=== PATIENT | male | born 1995 | race Caucasian/White ===

== ENCOUNTER 2017-07-01 00:45 | Emergency (ER) | payer OTHER ==
[2017-07-01 00:50] VITALS: BP 122/72; PULSE 107; RESP 18; TEMP 98.2; O2SAT 95
--- NOTE | 2017-07-01 01:01 | EDPHY ---
H & P Time Seen by Provider: 07/01/17 00:49 HPI/ROS: CC: "I cut my hand while cooking." HPI: This 21-year-old male presents to the emergency department today with his mother and his fiancee for a laceration to his left hand which he states he sustained while cutting salmon a couple of hours prior to arrival. He admits he has been drinking heavily this evening and the history is somewhat difficult to obtain. He states he can move all his fingers, sensation is intact and his pain is minimal. 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 ROS: REVIEW OF SYSTEMS: Constitutional: No fever. Eyes: no discharge Skin: SEE HPI Neuro: SEE HPI Past Medical/Surgical History: As obtained by patient's mother: Past medical history: Denied Past surgical history: Denied Allergies: Possibly amoxicillin (fever and rash as a child) Meds: None Social History: The patient smokes tobacco daily, drinks heavily, denies illicit drug use. 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 He is engaged. Physical Exam: General: Alert, intoxicated, slightly belligerent with slurred speech HEENT: Normocephalic, atraumatic, eyes are injected bilaterally, mucous membranes are moist. Neck: Supple Cardiovascular: Normal peripheral perfusion Pulmonary: Nonlabored respirations Musculoskeletal: 6 cm laceration across the palm of the left hand; he is able to move all of his fingers and strength is equal in all fingers against resistance. Sensation is intact surrounding the wound. Please refer to the procedure note for more detailed description. Neuro: Nonfocal exam, sensory and motor exams grossly normal. Psychiatric: Patient is oriented X 3, there is mild agitation. DIFFERENTIAL DIAGNOSIS: After history and physical exam differential diagnosis was considered for but not limited to: hand laceration, tendon injury Constitutional: Initial Vital Signs Temperature (C) 98.2 F 07/01/17 00:48 Heart Rate 107 H 07/01/17 00:48 Respiratory Rate 18 07/01/17 00:48 Blood Pressure 122/72 H 07/01/17 00:48 O2 Sat (%) 95 07/01/17 00:48 O2 Delivery Mode Room Air Allergies/Adverse Reactions: No Known Allergies Allergy (Unverified 07/01/17 00:47) Home Medications: Medication Instructions Recorded Cephalexin 500 mg PO QID 6 Days #24 tablet 07/01/17 Medical Decision Making Procedures: Procedure: Laceration repair. Verbal consent was obtained from the patient. The 6 cm laceration on the palm of the left hand was locally anesthetized using 8 mls of 2% plain lidocaine in the usual sterile fashion. The wound was thoroughly irrigated and cleansed by Lauri Portillo. The wound was then draped and explored to its base with a gloved finger. There were no deep structures involved. No tendon injury was identified. No foreign body was identified. The wound was repaired with #11 simple interrupted sutures using 4.0 Prolene. The wound repair was satisfactory and the patient tolerated the procedure well. The procedure was performed by myself and took approximately 15 minutes. The wound was then dressed in a sterile fashion by the Lauri Portillo. ED Course/Re-evaluation: The patient was seen and examined. Vital signs reviewed. The laceration was repaired and a sterile dressing was placed. He was given a take-home pack of cephalexin 500 mg to be taken 1 tablet 4 times a day. He was given a prescription to complete a 7 day course. He will have the stitches removed in 12-14 days. He will return to the emergency room if any signs of infection. He has continued pain or any other concerns he should follow up with a hand surgeon as listed in his discharge instructions. These instructions were given to the patient and to his mother and fiancee as the patient is very intoxicated. Departure - Departure Disposition: Home, Routine, Self-Care Clinical Impression: Laceration of left hand Qualifiers: Encounter type: initial encounter Foreign body presence: without foreign body Qualified Code(s): S61.412A - Laceration without foreign body of left hand, initial encounter Condition: Good Instructions: Care For Your Stitches (ED), Laceration (ED) Additional Instructions: Keep your wound clean and dry. Take antibiotic as directed. SUTURE REMOVAL IN 12-14 DAYS WITH YOUR PRIMARY CARE DOCTOR, AN URGENT CARE OR YOU MAY RETURN TO THE ER. If continued pain or any trouble with moving your hand or the feeling in your hand, follow up with the hand specialist (DR. GOLD) listed. Return to the ED immediately if any sign of infection (see discharge instructions). Referrals: Angelito Gold MD [Medical Doctor] - Follow Up Only If Needed Prescriptions: Cephalexin 500 mg PO QID 6 Days #24 tablet
[2017-07-01] MEDS ORDERED: CEPHALEXIN 500MG PREPACK#4 BTL TAKEHOME ONE (01:32)
== END 2017-07-01 01:40 | disposition home or self-care (01) ==
LOC: CED 00:45
PROC: 0HQGXZZ Repair Left Hand Skin, External Approach (ICD-10-PCS; principal; 2017-07-01)
DX: S61.412A Laceration without foreign body of left hand, initial encounter (principal); W26.0XXA Contact with knife, initial encounter; Y99.8 Other external cause status; Y93.G3 Activity, cooking and baking